=== PATIENT | female | born 1945 | race Caucasian/White ===

== ENCOUNTER → 2024-06-29 09:04 | Day surgery (SDC) | payer MEDICARE, SELFPAY ==
--- NOTE | 2024-06-29 12:25 | ITS.CL.CARDI ---
Ethylene Compressor Operator - Cardioversion
Cardioversion
Procedure Report:
Date of Procedure: 06/29/24
Procedure: Cardioversion
Indication: Symptomatic atrial fibrillation
Performing Physician: Feliz Sevilla MD
Technique: The patient was brought to the holding area. Signed informed consent was obtained. A time out was called and performed. The patient was anesthetized by the anesthesia service. Anticoagulation status was reviewed and appropriate. R2 pads
were placed anteriorly and posteriorly. A 200 J synchronized biphasic shock restored normal sinus rhythm without significant bradycardia. There were no complications.
Conclusion: Uncomplicated cardioversion from atrial fibrillation to sinus rhythm.
Recommendation: Routine post cardioversion care. Continue ferry terminal supervisor anticoagulation.
== END ==
LOC: CATH 09:04
PROVIDERS: ATTENDING PHYSICIAN Internal Medicine Cardiovascular Disease; FAMILY PHYSICIAN Nurse Practitioner Adult Health; OTHER PHYSICIAN Internal Medicine Cardiovascular Disease
DX: I48.0 Paroxysmal atrial fibrillation (principal); I10 Essential (primary) hypertension; Z82.49 Family history of ischemic heart disease and other diseases of the circulatory system; Z79.01 Long term (current) use of anticoagulants
CPT/HCPCS: 92960; 93005

== ENCOUNTER → 2024-07-07 13:59 | Outpatient (REF) | payer MEDICARE, SELFPAY | LOC: HWRCS 13:59 | PROVIDERS: ATTENDING PHYSICIAN Internal Medicine Cardiovascular Disease; FAMILY PHYSICIAN Nurse Practitioner Adult Health | DX: I34.1 Nonrheumatic mitral (valve) prolapse (principal) | CPT/HCPCS: 93306 ==

== ENCOUNTER 2024-08-07 07:10 | Day surgery (SDC) | payer MEDICARE, SELFPAY ==
[2024-08-07 07:52] VITALS: BMI 20.3
--- NOTE | 2024-08-07 15:40 | ITS.CL.CARDI ---
Senior Technical Support Analyst - Cardioversion
Cardioversion
Procedure Report:
Date of Procedure: 08/07/2024
Procedure: Cardioversion
Indication: Symptomatic atrial fibrillation
Performing Physician: Shahnaz Taveras DO [facility]
Antiarrhythmic therapy: Amiodarone
Anticoagulation therapy: Xarelto
Technique: The patient was brought to the holding area. Signed informed consent was obtained. A time out was called and performed. The patient was anesthetized by the anesthesia service. Anticoagulation status was reviewed and appropriate. R2 pads
were placed anteriorly and posteriorly. A 200J synchronized biphasic shock restored normal rhythm, sinus bradycardia. There were no complications.
Conclusion: Uncomplicated cardioversion from atrial fibrillation to sinus bradycardia
Recommendation: Routine post cardioversion care. Will reduce amiodarone to 200 mg once daily. Continue fpc anticoagulation. She has a follow-up appointment with her electrical appliance preparer, Dr. Moreno August 17, 2024.
== END 2024-08-07 09:14 | disposition home or self-care (01) ==
LOC: CATH 07:10
PROVIDERS: ATTENDING PHYSICIAN Internal Medicine Cardiovascular Disease; FAMILY PHYSICIAN Nurse Practitioner Adult Health; OTHER PHYSICIAN Internal Medicine Cardiovascular Disease
DX: I48.0 Paroxysmal atrial fibrillation (principal); I10 Essential (primary) hypertension; E03.9 Hypothyroidism, unspecified; E78.00 Pure hypercholesterolemia, unspecified; I34.0 Nonrheumatic mitral (valve) insufficiency; Z79.01 Long term (current) use of anticoagulants
CPT/HCPCS: 92960; 93005

== ENCOUNTER → 2024-09-08 07:35 | Outpatient (REF) | payer MEDICARE, SELFPAY ==
[2024-09-08 10:03] LABS: % Basophils 0.8 % (0-2); % Eosinophils 2.1 % (0-6); % Immature Granulocytes 0.5 % (0-0.5); % Lymphocytes 20.1 % (20.5-51.1); % Monocytes 12.8 % (1.7-9.3); % Neutrophils 63.7 % (42.2-75.2); Absolute Eosinophils 0.1 10^3/uL (0-0.7); Absolute Lymphocytes 0.8 10^3/uL (1.2-3.4); Absolute Monocytes 0.5 10^3/uL (0.1-0.6); Absolute Neutrophils 2.4 10^3/uL (1.4-6.5); Hematocrit 39.4 % (37.0-47.0); Hemoglobin 12.8 g/dL (12.0-16.0); Mean Corp Hgb Conc. 32.5 g/dL (33.0-37.0); Mean Corpuscular Hgb 31.8 pg (27.0-31.0); Mean Corpuscular Volume 97.8 fL (81.0-99.0); Mean Platelet Volume 11.8 fL (7.4-10.4); Nucleated Red Blood Cells % 0 %; Platelet Count 147 10^3/uL (130-400); Red Blood Cell Count 4.03 10^6/uL (4.20-5.40); Red Cell Dist. Width 14.8 % (11.5-14.5); White Blood Cell Count 3.8 10^3/uL (4.8-10.8)
[2024-09-08 10:14] LABS: ALT (SGPT) 34 U/L (0-35); AST (SGOT) 33 U/L (14-36); Albumin 4.6 g/dl (3.5-5.0); Alkaline Phosphatase 70 U/L (38-126); Blood Urea Nitrogen 19 mg/dl (7-17); Calcium 9.7 mg/dl (8.4-10.2); Carbon Dioxide 32 mmol/L (22-30); Chloride 101 mmol/L (98-107); Glucose 101 mg/dl (70-99); Potassium 4.4 mmol/L (3.5-5.1); Sodium 141 mmol/L (135-145); Total Bilirubin 1.1 mg/dl (0.2-1.3); Total Cholesterol 205 mg/dl (50-199); Triglyceride 53 mg/dl (10-149); Very Low Density Lipoprotein 10 mg/dl (0-30); eGFR 46.33
[2024-09-08 10:28] LABS: HDL Cholesterol 121 mg/dl; LDL Cholesterol, Calculated 74 mg/dl
[2024-09-08 10:56] LABS: Vitamin D, 25-OH*** 54.6 ng/mL (30-80)
[2024-09-08 11:38] LABS: Free T4 2.04 ng/dl (0.78-2.19)
== END ==
LOC: HWLAB 07:35
PROVIDERS: ATTENDING PHYSICIAN Nurse Practitioner Adult Health
DX: M85.80 Other specified disorders of bone density and structure, unspecified site (principal); D72.819 Decreased white blood cell count, unspecified; E78.00 Pure hypercholesterolemia, unspecified; E03.9 Hypothyroidism, unspecified
CPT/HCPCS: 36415; 80053; 80061; 82306; 84439; 84443; 85025

== ENCOUNTER → 2024-10-10 13:38 | Outpatient (REF) | payer MEDICARE, SELFPAY ==
[2024-10-10 15:59] LABS: Blood Urea Nitrogen 22 mg/dl (7-17); Calcium 9.5 mg/dl (8.4-10.2); Carbon Dioxide 29 mmol/L (22-30); Chloride 98 mmol/L (98-107); Glucose 118 mg/dl (70-99); Potassium 4.5 mmol/L (3.5-5.1); Sodium 136 mmol/L (135-145); eGFR 46.33
[2024-10-10 16:21] LABS: TSH Reflex To Free T4 2.51 uIU/ml (0.47-4.68)
== END ==
LOC: HWLAB 13:38
PROVIDERS: ATTENDING PHYSICIAN Nurse Practitioner Adult Health
DX: E03.9 Hypothyroidism, unspecified (principal); N17.9 Acute kidney failure, unspecified
CPT/HCPCS: 36415; 80048; 84443

== ENCOUNTER → 2024-10-12 10:18 | Outpatient (REF) | payer MEDICARE, SELFPAY | LOC: HWRAD 10:18 | PROVIDERS: ATTENDING PHYSICIAN Nurse Practitioner Adult Health | DX: Z78.0 Asymptomatic menopausal state (principal) | CPT/HCPCS: 77080 ==

== ENCOUNTER 2024-12-07 06:59 | Day surgery (SDC) | payer MEDICARE, SELFPAY | END 2024-12-07 09:34 | disposition home or self-care (01) | LOC: CATH 06:59 | PROVIDERS: ATTENDING PHYSICIAN Internal Medicine Cardiovascular Disease; FAMILY PHYSICIAN Nurse Practitioner Adult Health; OTHER PHYSICIAN Internal Medicine Cardiovascular Disease | DX: I48.0 Paroxysmal atrial fibrillation (principal); I12.9 Hypertensive chronic kidney disease with stage 1 through stage 4 chronic kidney disease, or unspecified chronic kidney disease; N18.30 Chronic kidney disease, stage 3 unspecified; E78.5 Hyperlipidemia, unspecified; I34.1 Nonrheumatic mitral (valve) prolapse; Z79.01 Long term (current) use of anticoagulants | CPT/HCPCS: 93312; 93320; 93325 ==

== ENCOUNTER 2024-12-13 06:17 | Day surgery (SDC) | payer MEDICARE, SELFPAY ==
[2024-11-22 13:07] VITALS: BMI 20.1
[2024-12-13] VITALS (15 sets, daily range): BP systolic 123–190; BP diastolic 85–155
[2024-12-13] MEDS: NSS 500 IV (06:56)
[2024-12-13 09:06] LABS: ACT-LR - POC 256 Seconds (116-155)
--- NOTE | 2024-12-13 11:48 | ITS.CL.ABL ---
Neonatal Intensive Care Nurse - Ablation
Ablation
Procedure Report:
Primary Theology Professor: Feliz Moreno MD
Procedure Date: 12/13/2024
Patient History:
Patient is a pleasant 79-year-old female with a past medical history significant for hypertension, aortic atherosclerosis, hyperlipidemia, IJEOMA, MVP, valvular heart disease, hypothyroidism, suspected sleep apnea, paroxysmal atrial fibrillation and
atrial flutter. Patient had symptomatic bradycardia for which her amiodarone and metoprolol were discontinued. She had breakthrough on both these medications.
See H&P for complete details.
Indication:
Symptomatic paroxysmal atrial fibrillation
Symptomatic paroxysmal atrial flutter
Inability to tolerate antiarrhythmic medical therapy/AV denise blocking therapy
Arrhythmia Specific History:
Prior Medical Therapies for Rate and Rhythm Control:
X Beta-cory
[ ] Calcium channel-cory
X Amiodarone
[ ] Dronederone
[ ] Sotalol
[ ] Flecainide
[ ] Dofetilide
[ ] Options limited by bradycardia
[ ] Options limited by comorbid renal disease
Prior Procedural Therapies for AF/AFL:
X Cardioversion
[ ] Pulmonary Vein Isolation
[ ] Posterior Wall Isolation
[ ] Additional lines (Specify)
[ ] Surgical Delgado-MAZE or PVI (Specify)
Procedure Performed:
X AF ablation procedure (55519) -- includes LA/CS pacing, trans-septal, 3D mapping, + ICE
[ ] +IV drug (09657)
X +Other Arrhythmia (04370) - focal atrial tachycardia
X +Other AF Line/ablation (46322) - posterior wall isolation (floor, roof, wall)
Risks and expected recovery has been explained in detail. Alternative options have been explored, and in a shared-decision making fashion we have decided that this was the most appropriate procedure.
Method
NPO status confirmed. Grounding pad applied. Defibrillator pads applied. Continuous surface ECG, pulse oximetry, and blood pressure were monitored. Procedure was performed under general anesthesia, with anesthesia services.
Both groins were clipped, prepped with Chloraprep, and draped in sterile fashion. Time out was called. Local anesthesia administered with bupivacaine. The right femoral vein was accessed for catheter placement, using ultrasound guidance (images
saved to record), micro-puncture needle/wire, and modified seldinger technique. 3 sheaths were placed. The following catheters were used:
[ ] Tacticath SE (D/F Curve) ablation catheter
X Viewflex 9Fr ICE catheter
X Inquiry decapolar 6Fr diagnostic catheter
[ ] CRD Hex 6Fr
[ ] Arctic Front Advance Cryoballoon ([ ]28mm[ ]23mm)
[ ] Achieve Advance mapping catheter ([ ]15mm[ ]20mm)
X FlexCath Contour 10 Fr with PulseSelect PFA Catheter
X Advisor HD Grid Mapping Catheter, SE
[ ] Acuson AcuNav 8 Fr ICE catheter
[ ]Other: [ ]
Intracardiac ultrasound (ICE) was carefully advanced into the right atrium to guide sheath placement over a J-wire, catheter placement, guide trans-septal puncture, identify potential complications, identify anatomic structures and ensure proper
contact between ablation catheter and tissue. A trace pericardial effusion was noted posterior to the LV at the initiation of case. It remained unchanged during procedure, and the case completion.
Heparin was given prior to trans-septal puncture. Heparin was given to achieve and maintain a target ACT of 300-400 seconds throughout the procedure.
Trans-septal access was performed under ICE guidance. The trans-septal puncture was performed with a SafeSept wire through a Brockenbrough needle assembly through the steerable sheath. The wire was visualized as it entered the LSPV and system
advanced under ICE guidance and fluoroscopy into the LA. The Brockenbrough needle assembly, SafeSept wire and sheath dilator were removed under negative pressure. LA pressure was measured and recorded (mean 2 pre procedure, 3 post procedure).
ICE and 3D mapping was performed to identify relevant cardiac structures. A careful 3D map was created to assess for regions of low-voltage and abnormal electrogram signals using HD grid mapping catheter and PulseSelect catheter. Additional mapping
was performed as outlined below.
Prior to ablation, glycopyrrolate was provided. PulseSelect catheter was advanced over J-wire to the ostium of each vein. Pulmonary vein isolation was performed with ostial and antral lesions in a circumferential manner. Contact was visualized via
EAM, ICE, fluoroscopy, and EGM signals. Posterior wall isolation was performed by anchoring the J-wire within the pulmonary vein and placing the PulseSelect catheter in contact with the posterior wall as visualized by aforementioned methods.
Following completion of ablation lesions, a post-ablation voltage/activation map was performed in sinus rhythm. Entrance and exit block were confirmed for each vein and the posterior wall. Electrophysiology study was performed and tachycardia was
induced. CS 7 8 appeared to be earliest activation with the tachycardia cycle length of 300 ms (fluctuated 290�310 ms). Attempted entrainment from right atrium and left atrium demonstrated exaggerated PPI minus TCL. Electroanatomic mapping using
HD grid demonstrated focal arrhythmia at anterior/anteroseptal location of left atrium. QS unipolar signal was noted with highly fractionated signal with high density mapping. Pulse select catheter was reintroduced in the left atrium (wire placed
into left superior pulmonary vein) and ablation performed at the spot of focal AT/micro reentry. Tachycardia terminated. Consolidation lesions performed around location of termination. Electrophysiology study once more performed and tachycardia
was noninducible.
Catheter and sheath were removed from the left atrium and post-ablation intracardiac echo evaluation was consistent with pre-ablation with no changes and no pericardial effusion and there is no left atrial thrombus or left ventricle thrombus seen.
Electrophysiology study was performed. Hemostasis was obtained with figure of 8 stitch for each groin and with manual pressure. Protamine was used for reversal.
Estimated Blood Loss
10 mL
Complications
None
Fluoroscopy: 5.8 minutes; 9.16 mGy; DAP 1.30
Baseline Intervals:
Rhythm: SB
NE: 175 ms
QRS: 77 ms
QT: 424 ms
QTc: 379 ms
Post-Procedure Intervals:
NE: 167 ms
QRS: 86 ms
QT: 439 ms
QTc: 467 ms
AVWB: 400 ms
AVERP/AERP not preformed due to intermittent ectopy
Recommendations
- Bedrest with straight-leg precautions as ordered
- Anticipate same day discharge if patient meeting clinical metrics
- Resume home medications as indicated
- Ok to resume anticoagulation tonight if patient and groin sites stable
- PPI daily for 30 days
- Plan for follow-up in office as scheduled
Jack Bond DO, FACC
Clinical Cardiac General Operator
cc: Feliz Moreno MD; RUSTY Fink
[2024-12-13] MEDS: COZAAR 25 MG PO (13:43)
--- NOTE | 2024-12-13 16:04 | W.PN.UPDATE ---
Update Note
Progress Note Update
79 yo WF s/p PVI (same day). She denies cp, sob, gui diet, voiding, amb w/o dizziness, EKG SR, R fem site c/d/i, soft, no HT. She will resume Xarelto tonight. We will add PPI for 30days. She will f/u Dr. Moreno in 2 mo. She is for d/c home after 4pm.
[2024-12-15 08:33] LABS: ACT-LR - POC 256 Seconds (116-155)
[2024-12-15 08:33] LABS: ACT-LR - POC 382 Seconds (116-155)
[2024-12-15 08:33] LABS: ACT-LR - POC 339 Seconds (116-155)
[2024-12-15 08:33] LABS: ACT-LR - POC 308 Seconds (116-155)
[2024-12-15 08:33] LABS: ACT-LR - POC 208 Seconds (116-155)
[2024-12-15 08:34] LABS: ACT-LR - POC 345 Seconds (116-155)
[2024-12-15 08:34] LABS: ACT-LR - POC 216 Seconds (116-155)
[2024-12-15 08:34] LABS: ACT-LR - POC 387 Seconds (116-155)
[2024-12-15 08:39] LABS: ACT-LR - POC > 397 Seconds (116-155)
== END 2024-12-13 16:07 | disposition home or self-care (01) ==
LOC: CATH 06:17
PROVIDERS: ATTENDING PHYSICIAN Internal Medicine Cardiovascular Disease; FAMILY PHYSICIAN Nurse Practitioner Adult Health; OTHER PHYSICIAN Internal Medicine Cardiovascular Disease
DX: I48.0 Paroxysmal atrial fibrillation (principal); I48.92 Unspecified atrial flutter; R00.1 Bradycardia, unspecified; I12.9 Hypertensive chronic kidney disease with stage 1 through stage 4 chronic kidney disease, or unspecified chronic kidney disease; E78.5 Hyperlipidemia, unspecified; I34.1 Nonrheumatic mitral (valve) prolapse; I34.0 Nonrheumatic mitral (valve) insufficiency; E03.9 Hypothyroidism, unspecified; M85.80 Other specified disorders of bone density and structure, unspecified site; M41.9 Scoliosis, unspecified; G47.33 Obstructive sleep apnea (adult) (pediatric); D72.819 Decreased white blood cell count, unspecified; Z79.890 Hormone replacement therapy; Z79.899 Other long term (current) drug therapy; Z79.01 Long term (current) use of anticoagulants; F41.1 Generalized anxiety disorder; N18.30 Chronic kidney disease, stage 3 unspecified; Z98.890 Other specified postprocedural states; Z90.49 Acquired absence of other specified parts of digestive tract
CPT/HCPCS: C1732; C1894; C1769; C1766; C1733; 76937; 85347; 86900; 86901; 93005; 93655; 93656; 93657

== ENCOUNTER → 2025-01-31 08:12 | Outpatient (REF) | payer MEDICARE, SELFPAY ==
[2025-01-31 09:41] LABS: % Basophils 0.8 % (0-2); % Eosinophils 2.2 % (0-6); % Immature Granulocytes 0.3 % (0-0.5); % Lymphocytes 26.3 % (20.5-51.1); % Monocytes 14.3 % (1.7-9.3); % Neutrophils 56.1 % (42.2-75.2); Absolute Eosinophils 0.1 10^3/uL (0-0.7); Absolute Lymphocytes 0.9 10^3/uL (1.2-3.4); Absolute Monocytes 0.5 10^3/uL (0.1-0.6); Hematocrit 35.1 % (37.0-47.0); Hemoglobin 11.6 g/dL (12.0-16.0); Mean Corpuscular Hgb 32.1 pg (27.0-31.0); Mean Corpuscular Volume 97.2 fL (81.0-99.0); Mean Platelet Volume 11.7 fL (7.4-10.4); Nucleated Red Blood Cells % 0 %; Platelet Count 173 10^3/uL (130-400); Red Blood Cell Count 3.61 10^6/uL (4.20-5.40); Red Cell Dist. Width 14.3 % (11.5-14.5); White Blood Cell Count 3.6 10^3/uL (4.8-10.8)
[2025-01-31 09:55] LABS: Urine Albumin 1+ (Neg - Trace); Urine Bilirubin Negative (Negative); Urine Character Clear (Clear); Urine Color Yellow; Urine Glucose Negative (Negative); Urine Ketone Negative (Negative); Urine Leukocyte Negative (Negative); Urine Nitrite Negative (Negative); Urine Occult Blood Negative (Negative); Urine Urobilinogen Negative (Neg - 1+); Urine pH 6.5 (5.0-9.0)
[2025-01-31 10:32] LABS: Urine Bacteria Few (Negative); Urine Red Blood Cell 0-2 /HPF (0-2)
[2025-01-31 11:04] LABS: ALT (SGPT) 19 U/L (0-35); AST (SGOT) 26 U/L (14-36); Albumin 4.1 g/dl (3.5-5.0); Alkaline Phosphatase 86 U/L (38-126); Blood Urea Nitrogen 17 mg/dl (7-17); Calcium 9.7 mg/dl (8.4-10.2); Carbon Dioxide 31 mmol/L (22-30); Chloride 104 mmol/L (98-107); Glucose 91 mg/dl (70-99); Potassium 4.2 mmol/L (3.5-5.1); Sodium 140 mmol/L (135-145); Total Bilirubin 0.9 mg/dl (0.2-1.3); Total Protein 6.5 g/dl (6.3-8.2); eGFR > 60.00
[2025-01-31 11:32] LABS: TSH Reflex To Free T4 2.12 uIU/ml (0.47-4.68)
== END ==
LOC: HWLAB 08:12
PROVIDERS: ATTENDING PHYSICIAN Nurse Practitioner Adult Health
DX: E03.9 Hypothyroidism, unspecified (principal); D72.819 Decreased white blood cell count, unspecified; E78.00 Pure hypercholesterolemia, unspecified; R79.89 Other specified abnormal findings of blood chemistry
CPT/HCPCS: 36415; 80053; 81003; 81015; 84443; 85025

== ENCOUNTER 2025-04-15 04:04 | Emergency (ER) | payer MEDICARE, SELFPAY ==
[2025-04-15 04:08] VITALS: BP 124/87
[2025-04-15 04:11] VITALS: BP 124/87
[2025-04-15 04:22] VITALS: BMI 20.8
[2025-04-15 04:47] LABS: Hematocrit 37.0 % (37.0-47.0); Hemoglobin 12.7 g/dL (12.0-16.0); Mean Corp Hgb Conc. 34.3 g/dL (33.0-37.0); Mean Corpuscular Volume 93.0 fL (81.0-99.0); Nucleated Red Blood Cells % 0 %; Platelet Count 145 10^3/uL (130-400); Red Cell Dist. Width 12.9 % (11.5-14.5)
[2025-04-15 05:00] VITALS: BP 110/90
[2025-04-15] MEDS: CARDIZEM 125 IV (05:05)
[2025-04-15 05:13] LABS: ALT (SGPT) 18 U/L (0-35); AST (SGOT) 25 U/L (14-36); Albumin 4.4 g/dl (3.5-5.0); Alkaline Phosphatase 98 U/L (38-126); Blood Urea Nitrogen 20 mg/dl (7-17); Calcium 9.3 mg/dl (8.4-10.2); Carbon Dioxide 23 mmol/L (22-30); Chloride 107 mmol/L (98-107); Estimated Creatinine Clearance 38 ml/min; Glucose 133 mg/dl (70-99); Potassium 4.2 mmol/L (3.5-5.1); Sodium 138 mmol/L (135-145); Total Protein 6.6 g/dl (6.3-8.2); eGFR > 60.00
[2025-04-15 05:57] LABS: Troponin I < 0.012 ng/ml
[2025-04-15 06:00] VITALS: BP 105/77
[2025-04-15 07:00] VITALS: BP 94/76
--- NOTE | 2025-04-15 07:19 | ED.GENMED ---
History of Present Illness
General
Chief Complaint: Heart Rate Problem
Time Seen by Provider: 04/15/25 05:46
History of Present Illness
History of Present Illness:
80-year-old female with history of atrial fibrillation on Xarelto presenting to the emergency department for elevated heart rate. Patient reports she noticed her heart rate was elevated yesterday morning, progressed throughout the day. This
prompted her to come to the hospital. Notes underlying history of A-fib, however status post ablation a year ago, has since had no additional issues. She is still on Xarelto, however is not on any rate controlling medications. She denies any
associated chest pain or difficulty breathing. She denies abdominal pain or GI symptoms. She denies additional acute medical complaints
Past History
Past History
ED Past Medical History: Hypercholesterolemia and Hypothyroidism
ED Past Surgical History: None
Social History
Tobacco: Non-smoker
Alcohol: None
Drug: None
Personal:
Living: with family
Family History
Family History: Other (Nonsignificant)
Phy Exam
Physical Exam
Physical Exam:
General: Well-appearing, no clinical signs of dehydration, nontoxic and in no acute distress
HEENT: protecting airway
Neck: appears supple
CV: Normal rate, irregularly irregular rhythm
Resp: No accessory muscle use, no increased work of breathing, lungs clear to auscultation bilaterally
Abd: Soft and non-distended, no tenderness to palpation
Extremities: No deformities, no swelling
Neuro: alert, no focal neurologic deficit
: deferred
Rectal: deferred
Psych: Normal affect
Skin: Intact
Course
Orders/Labs/Results
Orders:
Orders
04/15/25 04:28
Electrocardiogram (*1) Urgent
Reason for Study: Atrial Fibrillation
04/15/25 04:29
EKG- Treatment ONCE
04/15/25 04:41
CMP [Comprehensive Metabolic Panel] Urgent
Complete Blood Count/With Diff Urgent
04/15/25 04:50
Diltiazem 125 mg/125 ml Nss [Cardizem] 125 mg in 125 ml .ROUTE .STK-MED
04/15/25 05:15
Diltiazem 125 mg/125 ml Nss [Cardizem] 125 mg in 125 ml IV PER PROTOCOL
Initial dose in mg/hr, then titrate:: 10
Titrate to keep:: Heart rate 80-100 bpm
Titrate by mg/hr:: 5 mg/hr
Frequency of titrations (minutes):: 15
Maximum dose in mg/hr:: 15
04/15/25 05:22
Troponin I Urgent
Abnormal Lab Results
04/15/25
04:41
RBC 3.98 L 10^6/uL
(4.20-5.40)
MCH 31.9 H pg
(27.0-31.0)
MPV 11.7 H fL
(7.4-10.4)
BUN 20 H mg/dl
(7-17)
Glucose 133 H mg/dl
(70-99)
04/15/25 04:41
04/15/25 04:41
Vital Signs
Initial and Last Documented VS:
Initial Vital Signs
Temp Pulse Resp BP Pulse Ox
98 F 78 14 124/87 97
04/15/25 04:08 04/15/25 04:08 04/15/25 04:08 04/15/25 04:08 04/15/25 04:08
Last Documented Vital Signs
Temp Pulse Resp BP Pulse Ox
98 F 71 15 94/76 98
04/15/25 04:08 04/15/25 07:45 04/15/25 07:45 04/15/25 07:00 04/15/25 07:45
MDM/Problems Addressed
MDM/Problems Addressed:
80-year-old female with history of atrial fibrillation status post ablation on Xarelto presenting for elevated heart rate. Vital signs on arrival are normal.
On exam, patient is resting comfortably, no acute distress. Prior to my assessment, patient received diltiazem with started on a diltiazem drip for rate control. Upon my assessment, patient is now rate controlled in the 70s. She is asymptomatic.
Suspect presenting symptoms from A-fib with RVR, since corrected. Patient offered cardioversion, however currently declining. She had previously been on metoprolol, and would like to restart her medications and follow-up with cardiology. Will
discuss with cardiology. Labs obtained prior to my assessment, unremarkable.
08:30 - Patient remains asymptomatic. In discussion with Dr. Saucedo, recommending the cardioversion. Did again discussed with patient. Again offered cardioversion. Patient again notes that she has had cardioversion several times in the past,
and would prefer to go home with her metoprolol and follow-up with cardiology. Per cardiology, recommending that if patient is to go home without cardioversion, metoprolol XL 25 mg daily. Patient notes she already has this prescription at home.
She will call her welding lead burner tomorrow. Feel stable for discharge. Return precautions discussed
*Pulse Oximetry
SaO2: 97
Oxygen Mode of Delivery: Room air
Patient hypoxic: no
*EKG
Interpreted by ED Provider?: Yes
EKG Intrepretation Date: 04/15/25
EKG Intrepretation Time: 08:03
Interpretation: abnormal
Comparison EKG: changes noted
Heart Rate: 79
Rate: normal
Rhythm: a-fib
[place]: normal axis
QRS Pattern: normal QRS
Ischemia: no ischemia
*Critical Care Note
Total Time (30-74mins, 75-104mins- exclusive of procedures): Not Applicable
ED Attending Note
-
Portions of this chart may have been created with voice recognition software.� Occasional wrong word or��sound alike� substitutions may have occurred due to the inherent limitations of voice recognition software.
Discharge Plan
Departure
Prescriptions:
No Action
levothyroxine 75 MCG tablet
75 mcg PO DAILY
rosuvastatin 10 mg Tablet
10 mg PO HS
losartan 25 mg Tablet
25 mg PO DAILY
multivitamin Tablet
1 tab PO DAILY@1200
Xarelto 20 mg Tablet
20 mg PO DAILY
calcium 500 mg Tablet
500 mg PO DAILY
Eye Vitamins
1 tab PO BID
cholecalciferol (vitamin D3) [Vitamin D3] 50 mcg (2,000 unit) Capsule
50 mcg PO DAILY
pantoprazole 40 mg tablet,delayed release (DR/EC)
40 mg PO DAILY Qty: 30 0RF
Referrals:
Tessie Valentine CRNP [Family Provider, General]
Interventions
Interventions:
*Risk Screen - Suicide Last Done: 04/15/25 04:14
*General Assessment Last Done: 04/15/25 04:15
*Neglect/Abuse Screening Last Done: 04/15/25 04:16
*ED- Fall Risk Assessment Last Done: 04/15/25 04:19
*ED COVID-19 Vaccine History Last Done: 04/15/25 04:20
ED- Cardiac Assessment Last Done: 04/15/25 07:51
ED- Pulmonary Assessment Last Done: 04/15/25 07:51
Discharge Date and Time
Print Language: AMHARIC
[2025-04-15 09:58] VITALS: BP 105/83
== END 2025-04-15 09:59 | disposition home or self-care (01) ==
LOC: EMR 04:04
PROVIDERS: Emergency Medicine; EMERGENCY PHYSICIAN Student in an Organized Health Care Education/Training Program; FAMILY PHYSICIAN Nurse Practitioner Adult Health
DX: I48.91 Unspecified atrial fibrillation (principal); E03.9 Hypothyroidism, unspecified; E78.00 Pure hypercholesterolemia, unspecified; Z79.01 Long term (current) use of anticoagulants
CPT/HCPCS: 99283; 96374; 80053; 84484; 85025; 93005

== ENCOUNTER → 2025-04-17 10:45 | Outpatient (REF) | payer MEDICARE, SELFPAY ==
[2025-04-17 12:40] LABS: Hematocrit 38.3 % (37.0-47.0); Hemoglobin 12.5 g/dL (12.0-16.0); Mean Corp Hgb Conc. 32.6 g/dL (33.0-37.0); Mean Corpuscular Volume 96.5 fL (81.0-99.0); Nucleated Red Blood Cells % 0 %; Platelet Count 154 10^3/uL (130-400); Red Cell Dist. Width 12.9 % (11.5-14.5)
[2025-04-17 13:09] LABS: Iron 123 ug/dl (37-170)
[2025-04-17 13:19] LABS: Total Iron Binding Capacity 330 ug/dl (265-497)
[2025-04-17 13:37] LABS: Ferritin 31.1 ng/ml (11.1-264.0)
== END ==
LOC: HWLAB 10:45
PROVIDERS: ATTENDING PHYSICIAN Nurse Practitioner Adult Health
DX: D64.9 Anemia, unspecified (principal)
CPT/HCPCS: 36415; 82728; 83540; 83550; 85025

== ENCOUNTER → 2025-05-03 10:10 | Outpatient (REF) | payer MEDICARE, SELFPAY | LOC: DHSLP 10:10 | PROVIDERS: ATTENDING PHYSICIAN Internal Medicine Critical Care Medicine; FAMILY PHYSICIAN Nurse Practitioner Adult Health | DX: G47.30 Sleep apnea, unspecified (principal); R06.83 Snoring | CPT/HCPCS: 95800 ==

== ENCOUNTER → 2025-07-19 11:06 | Outpatient (REF) | payer MEDICARE, SELFPAY | LOC: HWRAD 11:06 | PROVIDERS: ATTENDING PHYSICIAN Nurse Practitioner Adult Health | DX: M54.6 Pain in thoracic spine (principal) | CPT/HCPCS: 72072 ==